=== PATIENT | female | born 1980 | race Hispanic/Latino ===

== ENCOUNTER 2021-03-31 14:12 | Emergency (ER) | payer OTHER ==
[~2021-03-31] VITALS: Ht 154.9 cm; Wt 88.4 kg
[~2021-03-31 14:12] MED LIST: LEVOTHROID125 MCG PO; LEXAPRO10 MG OR; LORTAB 5 OR
[2021-03-31] MEDS ORDERED: PROAIR HFA108 MCG/AC IN (16:47)
[2021-03-31] MEDS ORDERED: ZPAK PO (16:47)
[2021-03-31] MEDS ORDERED: ZOFRAN4 MG/TAB PO (19:03)
[2021-03-31] MEDS ORDERED: DECADRON6 MG PO (19:03)
[2021-03-31] MEDS ORDERED: AZITHROMYCIN500 MG PO (19:03)
[2021-03-31 19:15] VITALS: BP 129/74
== END 2021-03-31 19:15 | disposition home or self-care (01) | DRG 177 ==
LOC: ED 14:12
DX: U07.1 COVID-19 (principal); J12.82 Pneumonia due to coronavirus disease 2019